=== PATIENT | female | born 1995 | race Caucasian/White ===

== ENCOUNTER 2019-07-20 09:51 | Emergency (ER) | payer OTHER, MEDICAID, SELFPAY ==
[2019-07-20 09:59] VITALS: BP 153/97; PULSE 90; RESP 13; TEMP 36.6; O2SAT 99
--- NOTE | 2019-07-20 10:17 | ED.GENADULT ---
HPI - General Adult General Chief complaint: Eye Problems Stated complaint: right eye Time Seen by Provider: 07/20/19 10:02 Source: patient Mode of arrival: Ambulatory Limitations: no limitations History of Present Illness HPI narrative: Patient is a 24-year-old female. Last day she noticed some redness and swelling to the middle portion of her right eye. She stated that things worsened over the couple days. Yesterday went to the walk-in clinic. Was started on doxycycline. Has taken a dose last evening and a dose this morning. She was also given erythromycin ointment. No prior history of PRK or LASIK. Does not were glasses or contacts. No nasal congestion. No sore throat. No trauma. She thinks that the erythromycin ointment as potentially making her symptoms worse. Does not have a primary provider Related Data Previous Rx's Medication Instructions Recorded doxycycline hyclate 100 mg capsule 100 mg PO BID 7 Days #14 cap 07/19/19 erythromycin 5 mg/gram (0.5 %) eye 0.5 inch EYE-LEFT Q4H 7 Days #3.5 07/19/19 ointment gram Allergies Allergy/AdvReac Type Severity Reaction Status Date / Time No Known Drug Allergies Allergy Verified 07/19/19 11:14 Review of Systems Constitutional Constitutional: Denies fever(s) Eyes Comments: Redness around the right eye ENT Ears, Nose, Mouth, and Throat: Denies neck pain, Denies sinus pressure and Denies sore throat Cardiovascular Cardiovascular: Denies chest pain and Denies dyspnea Respiratory Respiratory: Denies dyspnea Gastrointestinal Gastrointestinal: Denies abdominal pain Musculoskeletal Musculoskeletal: Denies neck pain Integumentary/Breasts Comments: Redness around the right eye Hematologic/Lymphatic Hematologic/Lymphatic: Denies easy bleeding and Denies easy bruising Patient History Medical History No known health problems (06/08/12) Social History Smoking Status: Never smoker Smoking Status: Never smoker Substance Use Type: does not use Exam Initial Vital Signs Initial Vital Signs: Vital Signs Temperature 97.8 F 07/20/19 09:59 Pulse Rate 90 07/20/19 09:59 Respiratory Rate 13 07/20/19 09:59 Blood Pressure 153/97 H 07/20/19 09:59 Pulse Oximetry 99 07/20/19 09:59 Const General: cooperative, comfortable and well developed Limitations: mental status not altered HENMT Head: normal to inspection and normocephalic Ears: external ears normal Nose: external nose normal Eyes Pupils: PERRL EOM: EOM intact bilaterally Other: Patient with a 1 cm round redness to the nasal aspect of the upper lid of the right eye. Does have a small white area overlying this. Has swelling to the remainder of the right upper and lower eyelid. Upper being worse in the lower. With some erythema. Left eye with some erythema. Neuro General: alert, awake and oriented x3 Cognition: normal cognition Speech: speech normal Extrem General: normal to inspection and capillary refill normal Psych Appearance: grossly normal and well kempt Procedures Abscess I/D I&D #1: Site: face Side (if applicable): right Technique: incised with #11 blade Irrigation: No Packing used?: none Course Vital Signs Vital signs: Vital Signs - 8 hr 07/20/19 09:59 Temperature 97.8 F Pulse Rate [Apical] 90 Respiratory Rate 13 Blood Pressure [Left Arm] 153/97 H Pulse Oximetry 99 Medical Decision Making MDM Narrative Medical decision making narrative: Patient extraocular muscles intact. Low suspicion for orbital cellulitis. Does have a 1 cm area on the nasal aspect of the right upper eyelid that is concerning for an abscess. I did unroof this with an 11 blade. Had a very small amount of blood in purulent material returned. Patient states that afterwards she did feel less pressure in the area. The eyeball itself appears unremarkable. Redness around the remainder the eye. She is currently on doxycycline but has only taken 2 doses of this with the 2nd dose being just a few hours ago. I informed her that she should continue with this antibiotic. She is also on erythromycin ointment. She does feel that this is potentially making her symptoms worse. Informed her that she could stop doing the erythromycin ointment. Informed her that if her symptoms do worsen over the next 12-24 to 36 hours she should return to the emergency department. If after that her symptoms are not improving she should return as well. She expressed understanding and agreement. Discharge Plan Departure Patient Disposition: Home Clinical Impression: Preseptal cellulitis of right eye Instructions: DI for Cellulitis -- Adult Activity Restrictions/Additional Instructions: Recommend that you continue to take the antibiotics like we discussed. I also recommend that you contact the health technology resource teacher here at the hospital at [phone]. They can help you with establishing a primary provider. Return to the emergency department for any new or worsening symptoms like we discussed. Prescriptions: No Action doxycycline hyclate 100 mg capsule 100 mg PO BID 7 Days Qty: 14 RF: 0 erythromycin 5 mg/gram (0.5 %) ointment 0.5 inch EYE-LEFT Q4H 7 Days Qty: 3.5 RF: 0
== END 2019-07-20 10:38 | disposition home or self-care (01) ==
PROVIDERS: Emergency Provider Emergency Medicine
DX: L03.213 Periorbital cellulitis (principal); H00.031 Abscess of right upper eyelid
CPT/HCPCS: 10060; 99281; 99282

== ENCOUNTER → 2021-11-13 16:01 | Outpatient (CLI) | payer OTHER, SELFPAY ==
[2021-11-13 17:57] LABS: Appearance Urine UA CLEAR; Bilirubin Urine UA NEGATIVE (NEGATIVE); Color Urine UA YELLOW; Glucose Urine UA NEGATIVE (Negative); Ketones Urine UA NEGATIVE (NEGATIVE); Leukocyte Esterase Urine UA NEGATIVE (NEGATIVE); Nitrite Urine UA NEGATIVE (Negative); Occult Blood Urine UA TRACE-LYSED (Negative); Protein Urine UA NEGATIVE (Negative); Urobilinogen Urine UA 0.2 E.U./dL (0.2)
[2021-11-13 18:02] LABS: Add Manual Diff / Slide Review NO; Basophils Absolute Auto 0 /uL (0-100); Basophils Percent Auto 0.1 % (0-2); Eosinophils Absolute Auto 0 /uL (0-450); Eosinophils Percent Auto 0.3 % (2-4); Hematocrit 42.4 % (36-46); Hemoglobin 14.7 g/dL (12.0-16.0); Lymphocytes Absolute Auto 2000 /uL (1100-4500); Lymphocytes Percent Auto 17.4 % (25-40); Mean Corpuscular HGB Conc 34.6 % (30-36); Mean Corpuscular Hemoglobin 28.6 PG (26-34); Mean Corpuscular Volume 82.8 fL (80-100); Monocytes Absolute Auto 700 /uL (0-900); Monocytes Percent Auto 6.3 % (3-14); Neutrophils Absolute Auto 8700 /uL (1500-7000); Neutrophils Percent Auto 75.9 % (50-75); Platelet Count 276 X10^3/uL (150-400); Red Blood Cell Count 5.12 X10^6/uL (4.0-5.2); Red Cell Distribution Width 13.1 % (11.6-14.8); White Blood Cell Count 11.4 X10^3/uL (4.5-11.0)
[2021-11-13 19:18] LABS: HIV 1 & 2 Ab/Ag 4th Gen Combo NEGATIVE (NEGATIVE); Hep C Virus Ab w/Reflex Quant NEGATIVE s/c (NEGATIVE); Hepatitis B Surface Antigen NEGATIVE s/c (NEGATIVE); Rubella Antibody IgG 18.2 IU/mL (>15)
[2021-11-14 08:51] LABS: RPR Screen Non Reactive (Non Reactive); Varicella IgG Antibody 821 index (Immune >165)
== END ==
LOC: LAB 16:04
PROVIDERS: PCP Registered Nurse Diabetes Educator; Referring Provider Specialist; Visit Provider Specialist
DX: Z34.81 Encounter for supervision of other normal pregnancy, first trimester (principal)
CPT/HCPCS: 36415; 80055; 81003; 86787; 86803; 86850; 86900; 86901; 87086; 87389

== ENCOUNTER → 2021-12-06 11:20 | Outpatient (CLI) | payer OTHER, SELFPAY | PROVIDERS: Referring Provider Family Medicine; Visit Provider Family Medicine | DX: Z34.81 Encounter for supervision of other normal pregnancy, first trimester (principal) | CPT/HCPCS: 36415 ==

== ENCOUNTER → 2022-01-02 11:18 | Outpatient (CLI) | payer OTHER, SELFPAY ==
[2022-01-04 20:38] LABS: AFP Value 29.3 ng/mL (.); Gest Age on Col Date 15.1 weeks (.); Insulin Dep Diabetes No (.); OSBR Risk 1IN 5926 (.); Results Report (.); Test Results *Screen Negative* (.)
== END ==
PROVIDERS: PCP Obstetrics & Gynecology; Referring Provider Obstetrics & Gynecology; Visit Provider Obstetrics & Gynecology
DX: Z34.82 Encounter for supervision of other normal pregnancy, second trimester (principal); Z3A.16 16 weeks gestation of pregnancy
CPT/HCPCS: 36415; 82105

== ENCOUNTER → 2022-01-29 15:15 | Outpatient (CLI) | payer OTHER, SELFPAY ==
--- NOTE | 2022-01-29 15:17 | DI.US.S_ITS ---
PROCEDURE: US OB >= 14 WEEKS FETUS INDICATIONS: ANATOMY OUTSIDE/PRIOR DATING DATA: Last menstrual period (LMP): 09/21/2021. LMP-based estimated date of delivery (VEL): 06/28/2022. First dating scan (date and location): 11/19/2021. Estimated date of delivery (VEL) from first dating scan: 06/15/2022. The calculations are made using the study generated VEL of 06/15/2022. TECHNIQUE: Real-time scanning was performed of the fetus, with image documentation and biometric measurements. Endovaginal scanning: Not indicated COMPARISON: [facility] Ultrasound, US, US OB < 14 WEEKS, 11/19/2021, 12:41. FINDINGS: General: A single living intrauterine gestation is present. Presentation: Vertex Placenta: Placental position is posterior, without previa. Amniotic fluid index: 14.1 cm, normal range is 5-24 cm. Single deepest vertical pocket is 4.7 cm. heart rate: 141 beats per minute. Maternal cervical canal: 4.1 cm long. Normal lower limit is 2.5 cm. biometrics: Biparietal diameter: 4.8 cm, 20 weeks, 4 days. Head circumference: 18.1 cm, 20 weeks, 3 days. Abdominal circumference: 15.4 cm, 20 weeks, 4 days. Femur length: 3.2 cm, 20 weeks, 0 day. Clinically estimated gestational age: 20 weeks, 3 days. Composite gestational age from present scan: 20 weeks, 3 days. Estimated weight and percentile: 348 g, 41%. Anatomic survey: Neuro: Ventricles are non-dilated at less than 10 mm. Cisterna magna is normal at 3-11 mm. Cerebellum is normal in size and morphology. Nuchal skin fold: Normal at less than 6 mm between 14-21 weeks gestational age. Face: Nose and lips, facial profile are normal. Spine: No evidence for spina bifida. Heart: 4-chambered heart is present, with normal ventricular outflow tracts. Diaphragm: Diaphragm is intact. Stomach: Left-sided stomach is present. Kidneys: No hydronephrosis. Normal is less than 5 mm in 2nd trimester, less than 7 mm in 3rd trimester. Cord: 3-vessel cord has orthotopic insertion. Bladder: Normal in size. Extremities: All 4 extremities identified. IMPRESSION: 1. Single live intrauterine gestation with fetus in vertex presentation. heart rate is 141 beats per minute. Normal growth. Normal amount of amniotic fluid. Estimated weight is at 41%. 2. Normal anatomic survey. We strive to produce accurate, complete, and clear reports of imaging services. To assist us in improving patient care, this report was composed using standard report templates and voice recognition software. Therefore, it may contain abnormal punctuation, insertions and/or omissions. Occasional wrong-word or sound-alike substitutions may occur. Though we review the report and make efforts to correct it, we do recommend that the report be read carefully in proper context to recognize any text inaccuracies. Dictated by: Master Kennedy M.D. on 01/29/2022 at 17:24 Approved by: Master Kenendy M.D. on 01/29/2022 at 17:26
== END ==
PROVIDERS: PCP Obstetrics & Gynecology; Referring Provider Obstetrics & Gynecology; Visit Provider Obstetrics & Gynecology
DX: Z34.82 Encounter for supervision of other normal pregnancy, second trimester (principal); Z3A.20 20 weeks gestation of pregnancy
CPT/HCPCS: 76811

== ENCOUNTER → 2022-03-07 13:37 | Outpatient (CLI) | payer OTHER, MEDICAID, SELFPAY ==
[2022-03-09 06:56] LABS: Candida species Positive (Negative); Gardnerella vaginalis Negative (Negative); Trichomoas vaginalis Negative (Negative)
== END ==
PROVIDERS: Visit Provider Physician Assistant Medical
DX: Z34.81 Encounter for supervision of other normal pregnancy, first trimester (principal); N89.8 Other specified noninflammatory disorders of vagina; N94.9 Unspecified condition associated with female genital organs and menstrual cycle; Z3A.25 25 weeks gestation of pregnancy
CPT/HCPCS: 87480; 87510; 87660

== ENCOUNTER → 2022-03-22 13:17 | Outpatient (CLI) | payer OTHER, MEDICAID, SELFPAY ==
[2022-03-22 14:40] LABS: Hematocrit 39.7 % (36-46); Hemoglobin 13.5 g/dL (12.0-16.0)
[2022-03-22 14:52] LABS: GTT (PREG) 1 Hour PP 50gm Dose 143 mg/dL (76-139)
== END ==
PROVIDERS: Referring Provider Obstetrics & Gynecology; Visit Provider Obstetrics & Gynecology
DX: Z34.82 Encounter for supervision of other normal pregnancy, second trimester (principal); Z3A.26 26 weeks gestation of pregnancy
CPT/HCPCS: 36415; 82950; 85014; 85018

== ENCOUNTER → 2022-04-05 08:00 | Outpatient (CLI) | payer OTHER, MEDICAID, SELFPAY ==
[2022-04-05 09:03] LABS: Glucose Fasting Gestational 90 mg/dL (76-95)
[2022-04-05 10:13] LABS: Glucose 1 Hour Gest 158 mg/dL (76-180)
[2022-04-05 11:12] LABS: Glucose 2 Hour Gest 131 mg/dL (76-155)
[2022-04-05 11:59] LABS: Glucose Tol Interp,Gestational INTERPRETATION
[2022-04-05 12:07] LABS: Glucose 3 Hour Gest 122 mg/dL (76-140)
== END ==
PROVIDERS: Referring Provider Obstetrics & Gynecology; Visit Provider Obstetrics & Gynecology
DX: O99.810 Abnormal glucose complicating pregnancy (principal)
CPT/HCPCS: 82951; 82952

== ENCOUNTER → 2022-04-24 10:25 | Outpatient (CLI) | payer OTHER, MEDICAID, SELFPAY ==
[2022-04-25 16:01] LABS: Candida species Negative (Negative); Gardnerella vaginalis Negative (Negative); Trichomoas vaginalis Negative (Negative)
== END ==
PROVIDERS: Visit Provider Obstetrics & Gynecology
DX: N89.8 Other specified noninflammatory disorders of vagina (principal)
CPT/HCPCS: 87480; 87510; 87660

== ENCOUNTER 2022-05-01 17:54 | Observation (INO) | payer OTHER, MEDICAID, SELFPAY ==
[2022-05-01 19:39] LABS: Add Manual Diff / Slide Review NO; Basophils Absolute Auto 100 /uL (0-100); Basophils Percent Auto 0.6 % (0-2); Eosinophils Absolute Auto 100 /uL (0-450); Eosinophils Percent Auto 0.5 % (2-4); Hematocrit 39.9 % (36-46); Hemoglobin 13.6 g/dL (12.0-16.0); Lymphocytes Absolute Auto 1500 /uL (1100-4500); Lymphocytes Percent Auto 14.3 % (25-40); Mean Corpuscular Hemoglobin 29.6 PG (26-34); Monocytes Absolute Auto 900 /uL (0-900); Monocytes Percent Auto 8.3 % (3-14); Neutrophils Absolute Auto 8200 /uL (1500-7000); Neutrophils Percent Auto 76.3 % (50-75); Platelet Count 209 X10^3/uL (150-400); Red Blood Cell Count 4.59 X10^6/uL (4.0-5.2); Red Cell Distribution Width 13.7 % (11.6-14.8); White Blood Cell Count 10.7 X10^3/uL (4.5-11.0)
[2022-05-01 19:40] LABS: Appearance Urine UA CLEAR; Bilirubin Urine UA NEGATIVE (NEGATIVE); Color Urine UA YELLOW; Glucose Urine UA NEGATIVE (Negative); Ketones Urine UA NEGATIVE (NEGATIVE); Leukocyte Esterase Urine UA NEGATIVE (NEGATIVE); Nitrite Urine UA NEGATIVE (Negative); Occult Blood Urine UA NEGATIVE (Negative); Protein Urine UA NEGATIVE (Negative); Specific Gravity Urine UA <=1.005 (1.000-1.035); Urobilinogen Urine UA 0.2 E.U./dL (0.2)
[2022-05-01 19:44] LABS: pH Urine UA 6.5 (4.5-8.0)
[2022-05-01 19:57] LABS: Amorphous Sediment Urine 1+; Bacteria Urine Moderate (10-30); RBC Urine None Seen (0-5/HPF); Squamous Epithelial Cell Urine 1-5 /HPF (0-5/HPF); WBC Urine 0-1/HPF (0-5/HPF)
[2022-05-01 19:58] LABS: Culture Indicated Urine Specimen Cultured
[2022-05-01 20:00] LABS: Alanine Aminotransferase 82 IU/L (<35); Albumin 3.3 g/dL (3.5-5.0); Albumin Globulin Ratio 1.1 (1.0-2.8); Alkaline Phosphatase 108 U/L (38-126); Aspartate Aminotransferase 71 IU/L (14-36); BUN Creatinine Ratio 12.2 (6-22); Bilirubin Total 0.7 mg/dL (0.2-1.3); Blood Urea Nitrogen 5 mg/dL (7-17); Calcium 8.3 mg/dL (8.4-10.2); Carbon Dioxide 19 mmol/L (22-32); Chloride 107 mmol/L (98-107); Estimated Glomerular Filt Rate > 60 mL/min (>60); Globulin 2.9 g/dL (1.7-4.1); Glucose 106 mg/dL (70-100); Sodium 136 mmol/L (137-145); Total Protein 6.2 g/dL (6.3-8.2)
[2022-05-01 20:02] LABS: HEMOLYSIS 130 (0-50)
[2022-05-01 20:03] LABS: Potassium 4.6 mmol/L (3.4-5.1)
[2022-05-01] MEDS: LACTATED RINGERS 1,000 ML 1000 ML IV (20:14)
[2022-05-01] MEDS: ONDANSETRON 4 MG/2 ML INJ IV (20:31)
[2022-05-01] MEDS: SODIUM CHLORIDE 0.9% 1,000 ML 1000 ML IV (20:41)
--- NOTE | 2022-05-01 21:13 | P.TNLD_ITS ---
Visit Information Visit Information Date of evaluation: 05/01/22 Primary OB Provider: Oumou Mccrary Comments/Additional reasons for admission: 26 yo @ 33 weeks 4days SARAI brought in for evaluation due to persistent nausea and reported abdominal tightening, described contractions. Four days ago she had onset of nausea with emesis later that night. She also had loose stools, resolved the next day. No fever. Nausea has continued, though it is becoming overall less. She has not had any fever or other signs of infection. No nasal congestion, sore throat or cough. No one else is ill. No recent eating out, but feels she started not feeling well after eating some grapes from an organic market. Nausea getting less but still having some. Trying to stay hydrated with water and Pedialyte but feels she is somewhat dehydrated, urine staying a darker c olor. She has She denies headache, scotomata or abdominal pain. She has felt diffuse abdominal tightness which felt uncomfortable, but no focal pain. Less abdominal tightness now. Mostly persisting with the nausea. Denies leakage of fluid or vaginal bleeding. She is feeling good moveme nt. [facility] Medical History (Updated 11/27/21 @ 15:33 by Avril Pathak RN) Abscess Anxiety Depression Hirsutism PTSD (post-traumatic stress disorder) Surgical History (Updated 11/27/21 @ 15:33 by Avril Pathak RN) History of tonsillectomy Family History (Updated 11/27/21 @ 15:34 by Avril Pathak RN) Grandmother Lung cancer Diabetes mellitus Social History marital status: number of children: 1 household members: spouse and children lives independently: Yes housing: condominium (duplex) pets and animals: No education level: middle school occupational status: employed (desk job) current occupational exposures/hazards: No special marlon needs: No seatbelt use: always water heater temp set < 120 deg: Yes (Will check and adjust if needed) working smoke detector in home: Yes fire extinguisher in home: No carbon monox detector in home: Yes firearms in home: Yes firearms unloaded and locked: Yes do you feel safe at home: Yes Smoking Status: Former smoker (MJ only) second hand exposure: No alcohol intake: former substance use type: marijuana (Stopped when she learned she was ) during the past year weight has: remained stable well-balanced diet: about half the time daily servings fruits/ve-4 caffeine: Yes (green tea) Type(s) of exercise: walking frequency: daily Exam Vital Signs (past 8 hours): . Temp 36.6C BP 125/62, Pulse 100 then 94 Narrative Exam Narrative: General: Mildly fatigued, unwell appearing. No acute distress. Abdomen gravid, nontender throughout. Uterus nontender Objective Labs Result Diagrams: 05/01/22 19:30 05/01/22 19:30 Labs: Laboratory Results - last 24 hr 05/01/22 05/01/22 05/01/22 18:30 19:30 19:30 WBC 10.7 RBC 4.59 Hgb 13.6 Hct 39.9 MCV 87.0 MCH 29.6 MCHC 34.0 RDW 13.7 Plt Count 209 Neut % (Auto) 76.3 H Lymph % (Auto) 14.3 L [place] % (Auto) 8.3 Eos % (Auto) 0.5 L Baso % (Auto) 0.6 Neut # (Auto) 8200 H Lymph # (Auto) 1500 [place] # (Auto) 900 Eos # (Auto) 100 Baso # (Auto) 100 Sodium 136 L Potassium 4.6 Chloride 107 Carbon Dioxide 19 L BUN 5 L Creatinine 0.41 L Estimated GFR > 60 BUN/Creatinine Ratio 12.2 Glucose 106 H Calcium 8.3 L Total Bilirubin 0.7 AST 71 H ALT 82 H Alkaline Phosphatase 108 Total Protein 6.2 L Albumin 3.3 L Globulin 2.9 Albumin/Globulin Ratio 1.1 Urine Color Yellow Urine Appearance Clear Urine pH 6.5 Ur Specific [place] <=1.005 Urine Protein Negative Urine Glucose (UA) Negative Urine Ketones Negative Urine Occult Blood Negative Urine Nitrate Negative Urine Bilirubin Negative Urine Urobilinogen 0.2 Ur Leukocyte Esterase Negative Urine RBC None seen Urine WBC 0-1/hpf Ur Squamous Epith Cells 1-5 /hpf Amorphous Sediment 1+ Urine Bacteria Moderate (10-30) H Ur Culture Indicated? Specimen cultured Diagnosis, Plan/Disposition Plan/Disposition Plan: 26 yo EGA 33wk+4d with persistent but lessening nausea, suspect viral syndrome. Lab showed mild elevation in AST/ALT. Platelets, creatinine normal. UA no protein and her BP's are normal, feel unlikely preeclampsia. No abdominal tenderness to suspect cholecystitis or appendicitis At this time. UA negative negative except micro did show bacteria. Will reflex culture. She was IV hydrated with 2 L and given Zofran. She did feel overall better after the IV hydration and Zofran and was ready to try going home. Will Rx Zofran 4 at home for next 3 days as needed. Advised she should call if nausea significantly worsened again or if develops other symptoms including abdominal pain.. With mild elevated AST/ALT, urine protein / creatinine ratio ordered, but she had just voided again. BP is normal and I feel this is most likely a viral syndrome, which I discussed can also mildly elevated LFTs. Will thus discharge home at this time and check protein/creatinine ratio at follow-up office visit. OB Disposition: home
[2022-05-01 22:25] LABS: Creatinine Urine Random 14.2 mg/dL; Protein (Total) Urine Random 18 mg/dL (0-12); Protein Creatinine Ratio Urine 1.26 GRAM/24H
== END 2022-05-01 22:08 | disposition home or self-care (01) ==
LOC: LABOR 17:58
PROVIDERS: Admitting Provider Obstetrics & Gynecology; Referring Provider Obstetrics & Gynecology; Visit Provider Obstetrics & Gynecology
DX: O21.9 Vomiting of pregnancy, unspecified (principal); O47.03 False labor before 37 completed weeks of gestation, third trimester; Z3A.33 33 weeks gestation of pregnancy
CPT/HCPCS: 59025; 59050; 80053; 81001; 82570; 84156; 85025; 87086; 96360; G0378; G0379; J2405

== ENCOUNTER → 2022-05-09 09:35 | Outpatient (CLI) | payer OTHER, MEDICAID, SELFPAY ==
[2022-05-09 15:22] LABS: Creatinine Urine Random 17.2 mg/dL; Protein (Total) Urine Random 18 mg/dL (0-12); Protein Creatinine Ratio Urine 1.04 GRAM/24H
== END ==
PROVIDERS: Visit Provider Obstetrics & Gynecology
DX: Z34.03 Encounter for supervision of normal first pregnancy, third trimester (principal); R79.89 Other specified abnormal findings of blood chemistry
CPT/HCPCS: 82570; 84156

== ENCOUNTER → 2022-05-09 09:45 | Outpatient (CLI) | payer OTHER, MEDICAID, SELFPAY ==
[2022-05-09 10:17] LABS: Hematocrit 39.8 % (36-46); Hemoglobin 13.9 g/dL (12.0-16.0); Mean Corpuscular HGB Conc 34.9 % (30-36); Mean Corpuscular Hemoglobin 29.9 PG (26-34); Mean Corpuscular Volume 85.5 fL (80-100); Platelet Count 214 X10^3/uL (150-400); Red Blood Cell Count 4.65 X10^6/uL (4.0-5.2); Red Cell Distribution Width 13.3 % (11.6-14.8); White Blood Cell Count 10.7 X10^3/uL (4.5-11.0)
[2022-05-09 10:58] LABS: Alanine Aminotransferase 46 IU/L (<35); Albumin 3.3 g/dL (3.5-5.0); Alkaline Phosphatase 134 U/L (38-126); Aspartate Aminotransferase 31 IU/L (14-36); BUN Creatinine Ratio 14.9 (6-22); Bilirubin Total 0.2 mg/dL (0.2-1.3); Blood Urea Nitrogen 7 mg/dL (7-17); Calcium 8.8 mg/dL (8.4-10.2); Carbon Dioxide 22 mmol/L (22-32); Chloride 105 mmol/L (98-107); Estimated Glomerular Filt Rate > 60 mL/min (>60); Globulin 3.2 g/dL (1.7-4.1); Glucose 112 mg/dL (70-100); HEMOLYSIS < 15 (0-50); Potassium 3.8 mmol/L (3.4-5.1); Sodium 135 mmol/L (137-145); Total Protein 6.5 g/dL (6.3-8.2)
== END ==
PROVIDERS: Referring Provider Obstetrics & Gynecology; Visit Provider Obstetrics & Gynecology
DX: O99.891 Other specified diseases and conditions complicating pregnancy (principal); R79.89 Other specified abnormal findings of blood chemistry
CPT/HCPCS: 36415; 80053; 82570; 84156; 85027

== ENCOUNTER → 2022-05-10 13:39 | Outpatient (CLI) | payer OTHER, MEDICAID, SELFPAY | PROVIDERS: Referring Provider Obstetrics & Gynecology; Visit Provider Obstetrics & Gynecology | DX: O12.10 Gestational proteinuria, unspecified trimester (principal); Z3A.00 Weeks of gestation of pregnancy not specified | CPT/HCPCS: 87086 ==

== ENCOUNTER → 2022-05-16 12:36 | Outpatient (CLI) | payer OTHER, MEDICAID, SELFPAY ==
[2022-05-17 15:34] LABS: Strep Grp B PCR POS for Grp B Strep
== END ==
PROVIDERS: Visit Provider Obstetrics & Gynecology
DX: Z36.85 Encounter for antenatal screening for Streptococcus B (principal); Z3A.35 35 weeks gestation of pregnancy
CPT/HCPCS: 87186; 87653

== ENCOUNTER → 2022-05-20 06:47 | Outpatient (CLI) | payer OTHER, MEDICAID, SELFPAY ==
--- NOTE | 2022-05-20 06:51 | DI.US.S_ITS ---
PROCEDURE: US OB LIMITED INDICATIONS: FUNDAL HEIGHT LARGE FOR GESTATIONAL AGE. GROWTH. OUTSIDE/PRIOR DATING DATA: Last menstrual period (LMP): 09/21/2021. LMP-based estimated date of delivery (VEL): 06/28/2022. First dating scan (date and location): 11/19/2021. Estimated date of delivery (VEL) from first dating scan: 06/15/2022. The calculations are made using the ultrasound VEL of 06/15/2022. TECHNIQUE: Real-time scanning was performed of the fetus, with image documentation and biometric measurements. Endovaginal scanning: Not performed COMPARISON: [facility], , OB >= 14 WEEKS FETUS, 01/29/2022, 15:41. FINDINGS: General: A single living intrauterine gestation is present. Presentation: Vertex. Placenta: Placental position is posterior. Placental edge not visualized on this exam, previa not present previously. Amniotic fluid index: 9.9 cm, normal range is 5-24 cm. Single deepest vertical pocket is 3.4 cm. heart rate: 149 beats per minute. Maternal cervical canal: Not well visualized. biometrics: Biparietal diameter: 9.3 cm, 38 weeks 0 days Head circumference: 32.9 cm, 37 weeks 2 days Abdominal circumference: 34.6 cm, 38 weeks 4 days Femur length: 7.1 cm, 36 weeks 3 days estimated gestational age: 36 weeks 2 days Composite gestational age from present scan: 37 weeks 4 days Estimated weight and percentile: 3319 g, 89th percentile Other: Not applicable. IMPRESSION: 1. Single living intrauterine in vertex presentation. 2. Estimated weight at the 89th percentile. We strive to produce accurate, complete, and clear reports of imaging services. To assist us in improving patient care, this report was composed using standard report templates and voice recognition software. Therefore, it may contain abnormal punctuation, insertions and/or omissions. Occasional wrong-word or sound-alike substitutions may occur. Though we review the report and make efforts to correct it, we do recommend that the report be read carefully in proper context to recognize any text inaccuracies. Dictated by: Tommy Beltre M.D. on 05/20/2022 at 8:17 Approved by: Tommy Beltre M.D. on 05/20/2022 at 8:25
== END ==
PROVIDERS: Referring Provider Obstetrics & Gynecology; Visit Provider Obstetrics & Gynecology
DX: Z36.88 Encounter for antenatal screening for fetal macrosomia (principal); Z3A.37 37 weeks gestation of pregnancy
CPT/HCPCS: 76815

== ENCOUNTER → 2022-05-23 09:54 | Outpatient (CLI) | payer OTHER, MEDICAID, SELFPAY ==
[2022-05-23 10:29] LABS: Hematocrit 43.3 % (36-46); Hemoglobin 14.4 g/dL (12.0-16.0); Mean Corpuscular HGB Conc 33.2 % (30-36); Mean Corpuscular Hemoglobin 28.8 PG (26-34); Mean Corpuscular Volume 86.8 fL (80-100); Platelet Count 175 X10^3/uL (150-400); Red Cell Distribution Width 13.5 % (11.6-14.8); White Blood Cell Count 10.3 X10^3/uL (4.5-11.0)
[2022-05-23 10:51] LABS: Alanine Aminotransferase 21 IU/L (<35); Albumin 3.3 g/dL (3.5-5.0); Albumin Globulin Ratio 1.1 (1.0-2.8); Alkaline Phosphatase 140 U/L (38-126); Aspartate Aminotransferase 20 IU/L (14-36); BUN Creatinine Ratio 15.7 (6-22); Bilirubin Total 0.3 mg/dL (0.2-1.3); Blood Urea Nitrogen 8 mg/dL (7-17); Carbon Dioxide 21 mmol/L (22-32); Chloride 104 mmol/L (98-107); Estimated Glomerular Filt Rate > 60 mL/min (>60); Glucose 104 mg/dL (70-100); HEMOLYSIS < 15 (0-50); Potassium 4.1 mmol/L (3.4-5.1); Sodium 134 mmol/L (137-145); Total Protein 6.3 g/dL (6.3-8.2)
== END ==
PROVIDERS: Referring Provider Obstetrics & Gynecology; Visit Provider Obstetrics & Gynecology
DX: R79.89 Other specified abnormal findings of blood chemistry (principal); Z34.03 Encounter for supervision of normal first pregnancy, third trimester
CPT/HCPCS: 36415; 80053; 85027

== ENCOUNTER 2022-05-26 19:11 | Outpatient (CLI) | payer OTHER, MEDICAID, SELFPAY ==
--- NOTE | 2022-05-26 20:09 | PM.OBTRLD ---
Visit Information Visit Information Date of evaluation: 05/26/22 Primary OB Provider: Oumou Mccrary On-call OB Provider: Bronson Ledesma Reason for Evaluation: Yes non-stress test Comments/Additional reasons for admission: Kinga presents for evaluation due to decreased FM this evening. She's not having any contractions, bleeding, or LOF. Chart reviewed. PNC uneventful to date with noted to be LGA on her most recent growth US (05/20/2022) w/ ELLIS 9.9 cm. Elevated 1 hr. GDM screen but 3 hr. GTT is normal. GBS +. Vital Signs Vital Signs: BP: 129/78 P: 104 T: 37.0C PFSH Medical History (Updated 05/26/22 @ 20:26 by Bronson Ledesma MD) Abscess Anxiety Depression Hirsutism PTSD (post-traumatic stress disorder) Surgical History (Updated 11/27/21 @ 15:33 by Avril Pathak RN) History of tonsillectomy Family History (Updated 11/27/21 @ 15:34 by Avril Pathak RN) Grandmother Lung cancer Diabetes mellitus Social History marital status: number of children: 1 household members: spouse and children lives independently: Yes housing: condominium (duplex) pets and animals: No education level: middle school occupational status: employed (desk job) current occupational exposures/hazards: No special marlon needs: No seatbelt use: always water heater temp set < 120 deg: Yes (Will check and adjust if needed) working smoke detector in home: Yes fire extinguisher in home: No carbon monox detector in home: Yes firearms in home: Yes firearms unloaded and locked: Yes do you feel safe at home: Yes Smoking Status: Former smoker (MJ only) second hand exposure: No alcohol intake: former substance use type: marijuana (Stopped when she learned she was ) during the past year weight has: remained stable well-balanced diet: about half the time daily servings fruits/ve-4 caffeine: Yes (green tea) Type(s) of exercise: walking frequency: daily Evaluation Evaluation Baseline heart rate: 140 Variability: Moderate (11-25) monitor accelerations: Present Monitor Decelerations: Variable (? two mild variables vs. overshoot of baseline post acceleration x 2) Category of Tracing: Reactive Status: Category l Diagnosis, Plan/Disposition Final Diagnosis (1) : Status: Acute Problem details: 37+1 wks EGA (2) Decreased movement affecting management of in third trimester: Status: Acute Problem details: Resolved; active infant noted during period of observation on the Center. Patient reassured. Plan/Disposition Plan: Continue close observation of FM and patient encouraged to call or return to the with any concerns. F/U OB visit scheduled 05/30/[address] Mccrary. OB Disposition: home
== END 2022-05-26 20:20 | disposition home or self-care (01) ==
LOC: LABOR 19:17 → OB 05-29 09:08
PROVIDERS: Referring Provider Obstetrics & Gynecology; Visit Provider Obstetrics & Gynecology
DX: O36.8130 Decreased fetal movements, third trimester, not applicable or unspecified (principal); Z3A.37 37 weeks gestation of pregnancy
CPT/HCPCS: 59025; G0378; G0379

== ENCOUNTER 2022-05-30 22:26 | Inpatient (IN) | payer OTHER, MEDICAID, SELFPAY ==
[2022-05-30 23:10] VITALS: BP 136/66
[2022-05-31] MEDS: LACTATED RINGERS 1,000 ML 100 ML IV ×2 (00:14→03:44)
[2022-05-31] MEDS: PENICILLIN G POTASSIUM 5,000,000 UNIT in DEXTROSE 5% IN WATER 250 ML 250 UNIT IV (00:19)
[2022-05-31 00:27] LABS: Add Manual Diff / Slide Review NO; Basophils Absolute Auto 0 /uL (0-100); Basophils Percent Auto 0.1 % (0-2); Eosinophils Absolute Auto 0 /uL (0-450); Eosinophils Percent Auto 0.4 % (2-4); Hematocrit 42.5 % (36-46); Hemoglobin 14.6 g/dL (12.0-16.0); Lymphocytes Absolute Auto 1800 /uL (1100-4500); Lymphocytes Percent Auto 16.7 % (25-40); Mean Corpuscular HGB Conc 34.4 % (30-36); Mean Corpuscular Hemoglobin 29.5 PG (26-34); Mean Corpuscular Volume 85.8 fL (80-100); Monocytes Absolute Auto 900 /uL (0-900); Monocytes Percent Auto 8.8 % (3-14); Neutrophils Absolute Auto 7900 /uL (1500-7000); Platelet Count 178 X10^3/uL (150-400); Red Blood Cell Count 4.96 X10^6/uL (4.0-5.2); Red Cell Distribution Width 13.6 % (11.6-14.8); White Blood Cell Count 10.7 X10^3/uL (4.5-11.0)
[2022-05-31 00:47] LABS: COVID19 -Nasal RAPID Negative (Negative)
[2022-05-31] MEDS: FENT 2MCG/ML BUPIV 0.125% EPI 200 MCG/100 ML PLAST..BAG 7 MCG EPIDURAL (02:00)
[2022-05-31] MEDS: PENICILLIN G POTASSIUM 3,000,000 UNIT/50 ML FROZ.PIGGY 100 UNIT IV (03:47)
--- NOTE | 2022-05-31 05:05 | P.HPOB_ITS ---
OB HPI Date/Time Date of admission: 05/30/22 Date Patient Seen: 05/31/22 Time Patient Seen: 05:05 History of Present Condition Chief complaint: observation of labor VEL Calculator Estimated Delivery Date Method Current WG Current Estimate 06/15/22 Ultrasound #1 37w 6d Other Estimates 06/28/22 LMP (Uncertain) 36w 0d Estimated Gestational Age (weeks): 37+6 : 2 Para: 1 care: good care, initiated at week # (12), number of visits (10) and pounds weight gain (51) Dating criteria OB: LMP confirmed by 1st trimester US Ultrasounds: normal 1st trimester US and normal mid trimester US Obstetrical complications: none Medical complications OB: none Preadmission Labs Last OB Lab Results: Blood Type B Positive 05/31/22 00:10 Antibody Screen Negative 05/31/22 00:10 Hematocrit 42.5 % (36-46) 05/31/22 00:10 Hemoglobin 14.6 g/dL (12.0-16.0) 05/31/22 00:10 Hepatitis B Surface Antigen Negative s/c (NEGATIVE) 11/13/21 16 :09 Hepatitis C Antibody Negative s/c (NEGATIVE) 11/13/21 16:09 Rubella Antibody 18.2 IU/mL (>15) 11/13/21 16:09 Varicella-Zoster IgG Antibody 821 index (Immune >165) 11/13/21 16:09 Glucose 1 Hour 143 mg/dL (76-139) H 03/22/22 13:23 Group B Streptococcus (PCR) Pos for grp b strep H 05/16/22 12:3 6 Glucose Tolerance Testing: Fasting (90), 1 hr (158), 2 hr (131) and 3 hr (122) -: Chlamydia screen: negative, Gonorrhea screen: negative and Urine: negative -: PAP smear: Normal Genetic Screens: Cell-free DNA: Normal (normal male) and Alpha-fetoprotein: Normal External Labs -: Urine: negative Prior (ies) Past Pregnancies Del. Date GA/Weeks Labor Lgth Wt Sex Route Outcome Anesthesia Place Delv Breastfeed Preg Comp Name 12/12/17 41 9 7 lb 8 oz Female vaginal live - full term [place], [place] 5 months none [place] Evaluation Evaluation Baseline heart rate: 140 Variability: Moderate (11-25) monitor accelerations: Present Monitor Decelerations: Absent Contraction Frequency (minutes): 3 Uterine Contraction Intensity: Strong/Firm Status: Category l Dilation (cm): 10 Effacement (%): 100 station: +1 [facility] Medical History (Updated 05/27/22 @ 11:45 by Bronson Ledesma MD) Abscess Anxiety Depression Hirsutism PTSD (post-traumatic stress disorder) Surgical History (Updated 11/27/21 @ 15:33 by Avril Pathak, RN) History of tonsillectomy Family History (Updated 11/27/21 @ 15:34 by Avril Pathak RN) Grandmother Lung cancer Diabetes mellitus Social History marital status: number of children: 1 household members: spouse and children lives independently: Yes housing: condominium (duplex) pets and animals: No education level: middle school occupational status: employed (desk job) current occupational exposures/hazards: No special marlon needs: No seatbelt use: always water heater temp set < 120 deg: Yes (Will check and adjust if needed) working smoke detector in home: Yes fire extinguisher in home: No carbon monox detector in home: Yes firearms in home: Yes firearms unloaded and locked: Yes do you feel safe at home: Yes Smoking Status: Former smoker second hand exposure: No alcohol intake: former substance use type: marijuana (Stopped when she learned she was ) during the past year weight has: remained stable well-balanced diet: about half the time daily servings fruits/ve-4 caffeine: Yes (green tea) Type(s) of exercise: walking frequency: daily Meds Home Medications and Allergies Home Medications Medication Instructions Recorded Confirmed Type prenat.vits,jewel,wcs-dajs-gdqlb 1 tab PO DAILY 11/27/21 05/30/22 History fluconazole 150 mg tablet 150 mg PO Q3D 2 doses #2 tabs 03/11/22 05/30/22 Rx (Diflucan) nystatin-triamcinolone 100,000 1 applic topical BID 10 days #30 04/24/22 05/30/22 Rx unit/gram-0.1 % topical ointment grams Allergies Allergy/AdvReac Type Severity Reaction Status Date / Time No Known Drug Allergies Allergy Verified 05/30/22 08:53 OB Exam Narrative Exam Narrative: Generally: Patient comfortable with contractions with an epidural Fundal height: 40 cm Estimated weight: 8 lb Extremities: 1+ edema Objective Labs Result Diagrams: 05/31/22 00:10 Labs: Laboratory Results - last 24 hr 05/31/22 05/31/22 05/31/22 00:10 00:10 00:18 WBC 10.7 RBC 4.96 Hgb 14.6 Hct 42.5 MCV 85.8 MCH 29.5 MCHC 34.4 RDW 13.6 Plt Count 178 Neut % (Auto) 74.0 Lymph % (Auto) 16.7 L [place] % (Auto) 8.8 Eos % (Auto) 0.4 L Baso % (Auto) 0.1 Neut # (Auto) 7900 H Lymph # (Auto) 1800 [place] # (Auto) 900 Eos # (Auto) 0 Baso # (Auto) 0 SARS-CoV-2 (PCR) Negative Blood Type B Positive Antibody Screen Negative Assessment and Plan Assessment and Plan Assessment and Plan narrative: Assessment: 26-year-old 2 para 1 at 37-,6/7 weeks gestation entering second stage of labor Spontaneous rupture of membranes 6 hours ago, received 2 doses of antibiotics for GBS Epidural in place Abnormal 1 hour glucose, 3 hour normal Estimated weight at the eighty-ninth percentile at 36 weeks Plan: Expected management to spontaneous vaginal delivery
[2022-05-31] MEDS: CALCIUM CARBONATE 500 MG TAB 1000 MG PO (05:27)
--- NOTE | 2022-05-31 06:09 | PM.OBPRVD ---
Events: Induced HTN Labor & Delivery Delivery date: 05/31/22 Cervical ripening method: none Induction method: none Delivery monitor: external FHT and external uterine Route of delivery: Episiotomy description: None L&D Laceration Description: None Quantitative Blood Loss: 225 Anesthesia Type: Epidural Complications: None Narrative: Patient complete and pushed for 52 minutes. At 5:57 a.m., a live male infant delivered spontaneously in the [place] presentation, over an intact perineum. No nuchal cord. The remainder of the body delivered without difficulty and was placed on mom's abdomen. The cord was double clamped and cut after it stopped pulsing. Cord bloods were obtained. Pitocin was given in the IV fluids. The placenta delivered intact with a three-vessel cord at 6:05 a.m.. Fundus was massaged to firm. The vagina and perineum were examined and there were no lacerations. Apgars 8 at 1 minute and 9 at 5 minutes. QBL 225 cc. Epidural analgesia. . Mom and infant stable to recovery. Baby 1: gender: Male Presentation: vertex Position: Right Occiput Anterior Placenta delivery description: Spontaneous Cord Vessel Description: 3 Vessels and Clamped/Cut (After the cord stopped pulsing) score (1 min): 8 score (5 min): 9 weight: 8 lb 7.9 oz Plan for aftercare: Routine care
[2022-05-31] MEDS: ACETAMINOPHEN 325 MG TABLET 650 MG PO ×3 (08:23→20:45)
[2022-05-31] MEDS: IBUPROFEN 600 MG TABLET PO ×3 (08:24→20:45)
[2022-05-31] MEDS: DOCUSATE 100 MG CAPSULE PO (14:25)
[2022-05-31] MEDS: PRENATAL VIT,CALC/IRON/FOLIC 1 TABLET 1 TAB PO (14:26)
[2022-06-01] MEDS: IBUPROFEN 600 MG TABLET PO ×2 (02:23→09:11)
[2022-06-01] MEDS: ACETAMINOPHEN 325 MG TABLET 650 MG PO ×2 (02:23→09:11)
[2022-06-01 06:36] LABS: Hematocrit 36.4 % (36-46); Hemoglobin 12.7 g/dL (12.0-16.0)
[2022-06-01] MEDS: DOCUSATE 100 MG CAPSULE PO (09:11)
[2022-06-01] MEDS: PRENATAL VIT,CALC/IRON/FOLIC 1 TABLET 1 TAB PO (09:11)
--- NOTE | 2022-06-01 10:11 | PM.OBDS.1 ---
Discharge Providers Provider Date of admission: 05/30/22 22:26 Discharge Date: 06/01/22 Primary care physician: Oumou Mccrary MD Consults: 06/01/22 06:13 Consult to Disability Insurance Claim Examiner Routine Comment: Discharge provider: Asya Nina MD Summary Hospital Course Date Patient Seen: 06/01/22 Time Patient Seen: 10:11 Diagnoses: 37-,6/7 weeks gestation Spontaneous rupture of membrane Epidural analgesia Spontaneous vaginal delivery Hospital Course: Patient is a 26-year-old 2 para 2 who presented at 37-,6/7 weeks gestation with spontaneous rupture of membranes. She was group B strep positive. She received 2 doses of prophylactic antibiotics. She received an epidural for pain management. She had a spontaneous vaginal delivery without complication. She had no lacerations. Her course was unremarkable. She is discharged home on day #1. Peripartum Data Infant Delivery Method: Natural Vaginal Laceration Description: None Episiotomy description: None Procedures: Epidural analgesia Spontaneous vaginal delivery complications: none [place] 1: Gender: Male Disposition of : home Status at Discharge Cognitive/behavioral status at discharge: oriented Functional status at discharge: independent ambulation Overall status at discharge: patient is progressing back to baseline Time Spent with Patient Time attestation: Total time spent providing and/or coordinating discharge services: Time spent: Less than 30 minutes Objective Labs Result Diagrams: 06/01/22 06:17 Labs: Laboratory Results - last 24 hr 06/01/22 06:17 Hgb 12.7 Hct 36.4 Exam Narrative Exam Narrative: Generally: Patient is sitting up in bed, no acute distress Fundus: Firm at U -2 Extremities: 1+ edema, negative Homans Discharge Plan Discharge Plan Patient Disposition: Home Provider Discharge Comment: Call with fever, chills, or bleeding vaginally more than a pad in an hour Discharge orders & Medications Prescriptions: Continued fluconazole [Diflucan] 150 mg tablet 150 mg PO Q3D Qty: 2 0RF Rx Instructions: may repeat second dose 72 hrs after first dose prenat.vits,jewel,[id number] Tablet 1 tab PO DAILY Discontinued nystatin-triamcinolone 100,000-0.1 unit/gram-% ointment 1 applic topical BID 10 Days Qty: 30 1RF Rx Instructions: Apply a thin amount to affected vulvar area Follow up/Referrals: Asya Nina MD [Physician] - 07/15/22 2:00 pm Diet/Activity/Treatments Diet: Regular Activity: Nothing in the vagina for 6 weeks Skin/Wound/Dressing Care Report to your healthcare provider any signs of infection, such as:: chills, fever, increased pain and unusual drainage Visit Report/Discharge Packet Instructions: DI for Labor and Delivery, Vaginal Stand Alone Forms: Discharge: Care, Patient Portal/API, Stroke Signs & Symptoms Discharge Data Primary Care Provider: Oumou Mccrary
[2022-06-01 10:26] VITALS: BP 116/73; PULSE 74; RESP 19; TEMP 37
== END 2022-06-01 11:10 | disposition home or self-care (01) | DRG 560 ==
PROVIDERS: Admitting Provider Obstetrics & Gynecology; PCP Obstetrics & Gynecology; Referring Provider Obstetrics & Gynecology; Visit Provider Obstetrics & Gynecology
DX: O13.4 Gestational [pregnancy-induced] hypertension without significant proteinuria, complicating childbirth (principal); O99.824 Streptococcus B carrier state complicating childbirth; O42.02 Full-term premature rupture of membranes, onset of labor within 24 hours of rupture; Z3A.37 37 weeks gestation of pregnancy; Z37.0 Single live birth; Z20.822 Contact with and (suspected) exposure to COVID-19
CPT/HCPCS: 36415; 59050; 59409; 84112; 85014; 85018; 85025; 86850; 86900; 86901; 87635; C9803; G0379; J2540

== ENCOUNTER → 2022-07-15 12:26 | Outpatient (CLI) | payer OTHER, MEDICAID, SELFPAY ==
[2022-07-15 14:07] LABS: TSH w/ Reflex to FT4 1.17 uIU/mL (0.47-4.68)
[2022-07-16 11:00] LABS: Candida species Negative (Negative); Gardnerella vaginalis Negative (Negative); Trichomoas vaginalis Negative (Negative)
== END ==
PROVIDERS: Obstetrics & Gynecology; Referring Provider Physician Assistant Medical; Visit Provider Physician Assistant Medical
DX: E04.9 Nontoxic goiter, unspecified (principal); N89.8 Other specified noninflammatory disorders of vagina
CPT/HCPCS: 36415; 84443; 87480; 87510; 87660

== ENCOUNTER → 2023-02-06 16:34 | Outpatient (CLI) | payer OTHER, MEDICAID, SELFPAY | PROVIDERS: PCP Registered Nurse Diabetes Educator; Visit Provider Registered Nurse Diabetes Educator | DX: N89.8 Other specified noninflammatory disorders of vagina (principal) | CPT/HCPCS: 87210 ==

== ENCOUNTER → 2024-10-18 14:58 | Outpatient (CLI) | payer OTHER, SELFPAY ==
[2024-10-18 18:26] LABS: Urine N gonorrhoeae NOT DETECTED
[2024-10-18 18:27] LABS: Urine Chlamydia NOT DETECTED
== END ==
LOC: LAB 15:03
PROVIDERS: PCP Registered Nurse Diabetes Educator; Visit Provider Student in an Organized Health Care Education/Training Program
DX: Z34.81 Encounter for supervision of other normal pregnancy, first trimester (principal)
CPT/HCPCS: 87491; 87591

== ENCOUNTER → 2024-10-18 15:45 | Outpatient (CLI) | payer OTHER, SELFPAY ==
[2024-10-18 17:02] LABS: Add Manual Diff / Slide Review NO; Basophils Absolute Auto 0 /uL (0-100); Basophils Percent Auto 0.2 % (0-2); Eosinophils Absolute Auto 0 /uL (0-450); Eosinophils Percent Auto 0.5 % (2-4); Hematocrit 42.7 % (36-46); Hemoglobin 14.6 g/dL (12.0-16.0); Lymphocytes Absolute Auto 1600 /uL (1100-4500); Lymphocytes Percent Auto 17.4 % (25-40); Mean Corpuscular HGB Conc 34.3 % (30-36); Mean Corpuscular Hemoglobin 28.3 PG (26-34); Mean Corpuscular Volume 82.7 fL (80-100); Monocytes Absolute Auto 600 /uL (0-900); Monocytes Percent Auto 6.3 % (3-14); Neutrophils Absolute Auto 6900 /uL (1500-7000); Neutrophils Percent Auto 75.6 % (50-75); Platelet Count 297 X10^3/uL (150-400); Red Blood Cell Count 5.16 X10^6/uL (4.0-5.2); Red Cell Distribution Width 13.7 % (11.6-14.8); White Blood Cell Count 9.2 X10^3/uL (4.5-11.0)
[2024-10-18 17:07] LABS: Hemoglobin A1C% w Est Avg Glu 4.7 % (4.0-6.0)
[2024-10-19 04:40] LABS: RPR Screen Non Reactive (Non Reactive)
[2024-10-20 09:36] LABS: Varicella IgG Antibody Reactive (Non Reactive)
[2024-10-20 19:46] LABS: HIV 1 & 2 Ab/Ag 4th Gen Combo NEGATIVE (NEGATIVE); Hep C Virus Ab w/Reflex Quant NEGATIVE s/c (NEGATIVE); Hepatitis B Surface Antigen NEGATIVE s/c (NEGATIVE); Rubella Antibody IgG 20.9 IU/mL (>15)
== END ==
PROVIDERS: PCP Registered Nurse Diabetes Educator; Referring Provider Registered Nurse Diabetes Educator; Visit Provider Student in an Organized Health Care Education/Training Program
DX: O99.210 Obesity complicating pregnancy, unspecified trimester (principal)
CPT/HCPCS: 36415; 80055; 83036; 86787; 86803; 86850; 86900; 86901; 87086; 87147; 87389; 87491; 87591

== ENCOUNTER → 2024-12-20 10:27 | Outpatient (CLI) | payer OTHER, SELFPAY | PROVIDERS: PCP Registered Nurse Diabetes Educator; Referring Provider Student in an Organized Health Care Education/Training Program; Visit Provider Student in an Organized Health Care Education/Training Program | DX: Z36.0 Encounter for antenatal screening for chromosomal anomalies (principal) | CPT/HCPCS: 36415; 82105; 82677; 84702; 86336 ==

== ENCOUNTER → 2025-01-05 06:43 | Outpatient (CLI) | payer OTHER, SELFPAY ==
--- NOTE | 2025-01-05 06:43 | DI.US.S_ITS ---
PROCEDURE: US OB >= 14 WEEKS FETUS INDICATIONS: 20 week anatomy scan OUTSIDE/PRIOR DATING DATA: Last menstrual period (LMP): August 17, 2024. LMP-based estimated date of delivery (VEL): May 24, 2025. The calculations are made using the clinical VEL of May 24, 2025. TECHNIQUE: Real-time scanning was performed of the fetus, with image documentation and biometric measurements. Endovaginal scanning: Not performed COMPARISON: [facility], , OB >= 14 WEEKS FETUS, 01/29/2022, 15:41. FINDINGS: General: A single living intrauterine gestation is present. Presentation: Breech. Placenta: Placental position is anterior , without previa. Amniotic fluid index: 16.9 cm, normal range is 5-24 cm. Single deepest vertical pocket is 5.4 cm. heart rate: 150 beats per minute. Maternal cervical canal: 5.2 cm long. Normal lower limit is 2.5 cm. biometrics: Biparietal diameter: 4.7 cm, 20 weeks and 1 day Head circumference: 17.7 cm, 20 weeks and 1 day Abdominal circumference: 15.8 cm, 20 weeks and 6 days Femur length: 3.3 cm, 20 weeks and 2 days Clinically estimated gestational age: 20 weeks and 1 day Composite gestational age from present scan: 20 weeks and 3 days Estimated weight and percentile: 363 g which correlates with the 70th percentile for gestational age. Anatomic survey: Neuro: Ventricles are non-dilated at less than 10 mm. Cisterna magna is normal at 3-11 mm. Cerebellum is normal in size and morphology. Nuchal skin fold: Normal at less than 6 mm between 14-21 weeks gestational age. Face: Nose and lips, facial profile are normal. Spine: No evidence for spina bifida. Heart: 4-chambered heart is present, with normal ventricular outflow tracts. Diaphragm: Diaphragm is intact. Stomach: Left-sided stomach is present. Kidneys: No hydronephrosis. Normal is less than 5 mm in 2nd trimester, less than 7 mm in 3rd trimester. Cord: 3-vessel cord has orthotopic insertion. Bladder: Normal in size. Extremities: All 4 extremities identified. IMPRESSION: Single living intrauterine gestation with estimated sonographic gestational age of approximately 20 weeks and 3 days. Estimated weight of approximately 363 g which correlates with the 70th percentile for gestational age. Otherwise, normal routine second-trimester anatomy screening survey. We strive to produce accurate, complete, and clear reports of imaging services. To assist us in improving patient care, this report was composed using standard report templates and voice recognition software. Therefore, it may contain abnormal punctuation, insertions and/or omissions. Occasional wrong-word or sound-alike substitutions may occur. Though we review the report and make efforts to correct it, we do recommend that the report be read carefully in proper context to recognize any text inaccuracies. Dictated by: Juan Carlos Serna M.D. on 01/05/2025 at 11:25 Approved by: Juan Carlos Serna M.D. on 01/05/2025 at 11:28
== END ==
PROVIDERS: PCP Registered Nurse Diabetes Educator; Referring Provider Student in an Organized Health Care Education/Training Program; Visit Provider Student in an Organized Health Care Education/Training Program
DX: Z34.82 Encounter for supervision of other normal pregnancy, second trimester (principal); Z3A.20 20 weeks gestation of pregnancy
CPT/HCPCS: 76811

== ENCOUNTER → 2025-02-14 09:09 | Outpatient (CLI) | payer OTHER, SELFPAY ==
[2025-02-14 10:59] LABS: Hematocrit 37.7 % (36-46); Hemoglobin 13.3 g/dL (12.0-16.0)
[2025-02-14 11:55] LABS: GTT (PREG) 1 Hour PP 50gm Dose 99 mg/dL (76-139)
== END ==
PROVIDERS: PCP Registered Nurse Diabetes Educator; Referring Provider Obstetrics & Gynecology; Visit Provider Obstetrics & Gynecology
DX: Z13.1 Encounter for screening for diabetes mellitus (principal); Z13.0 Encounter for screening for diseases of the blood and blood-forming organs and certain disorders involving the immune mechanism
CPT/HCPCS: 36415; 82950; 85014; 85018

== ENCOUNTER 2025-04-26 13:47 | Observation (INO) | payer OTHER, SELFPAY ==
--- NOTE | 2025-04-26 14:25 | P.TNLD_ITS ---
Visit Information Visit Information Date of evaluation: 04/26/25 Primary OB Provider: Bronson Ledesma On-call OB Provider: Myrtle Rodriguez Reason for Evaluation: Yes non-stress test Comments/Additional reasons for admission: NST in lieu of routine office OB secondary to limitation in provider schedule [facility] Medical History (Updated 02/02/25 @ 15:43 by Bronson Ledesma MD) Cervical high risk HPV (human papillomavirus) test positive depression Difficulty of mother performing Deficient knowledge of Abscess Surgical History (Updated 09/30/24 @ 14:38 by Avril Pathak, NELLA) [place] teeth extracted History of tonsillectomy Family History Grandmother Lung cancer Diabetes mellitus Social History marital status: number of children: 2 household members: spouse and children lives independently: Yes caregiver/support person: Yes housing: condominium ([facility]) pets and animals: No education level: high school occupational status: employed current occupational exposures/hazards: No special marlon needs: No travel history: over 6 months ago seatbelt use: always water heater temp set < 120 deg: No working smoke detector in home: Yes fire extinguisher in home: No carbon monox detector in home: Yes firearms in home: Yes firearms unloaded and locked: Yes do you feel safe at home: Yes Tobacco: How many years used: 1 second hand exposure: Yes ( vapes, but not around pt) alcohol intake: former substance use type: marijuana (never while /) during the past year weight has: decreased > 10 lbs (~15 lb) well-balanced diet: daily or most days daily servings fruits/ve-4 caffeine: Yes (green tea) Type(s) of exercise: walking and resistance training frequency: daily Review of Systems Review of Systems ROS: Yes All systems reviewed with the patient and are negative except as otherwise documented Evaluation Evaluation Baseline heart rate: 140 Variability: Moderate (6-25) monitor accelerations: Present Monitor Decelerations: Absent Category of Tracing: Reactive Status: Category l Diagnosis, Plan/Disposition Plan/Disposition Plan: GBS collected prior to departure routine FM/labor precautions f/u in office as scheduled LILLIANA 05/03 OB Disposition: home
[2025-04-27 12:25] LABS: Strep Grp B PCR POS for Grp B Strep
== END 2025-04-26 14:51 | disposition home or self-care (01) ==
PROVIDERS: Admitting Provider Obstetrics & Gynecology; PCP Registered Nurse Diabetes Educator; Referring Provider Obstetrics & Gynecology; Visit Provider Obstetrics & Gynecology
DX: O36.8130 Decreased fetal movements, third trimester, not applicable or unspecified (principal); Z3A.36 36 weeks gestation of pregnancy
CPT/HCPCS: 59025; 87653; G0378; G0379

== ENCOUNTER 2025-05-16 11:58 | Outpatient (CLI) | payer OTHER, SELFPAY ==
--- NOTE | 2025-05-16 14:18 | PM.OBTRLD ---
Visit Information Visit Information Date of evaluation: 05/16/25 On-call OB Provider: Diya Mckoy Reason for Evaluation: Yes non-stress test [facility] Medical History (Updated 05/16/25 @ 14:19 by Diya Mckoy DO) Cervical high risk HPV (human papillomavirus) test positive depression Difficulty of mother performing Deficient knowledge of Abscess Surgical History (Updated 09/30/24 @ 14:38 by Avril Pathak, NELLA) [place] teeth extracted History of tonsillectomy Family History Grandmother Lung cancer Diabetes mellitus Social History marital status: number of children: 2 household members: spouse and children lives independently: Yes caregiver/support person: Yes housing: condominium ([place]) pets and animals: No education level: high school occupational status: employed current occupational exposures/hazards: No special marlon needs: No travel history: over 6 months ago seatbelt use: always water heater temp set < 120 deg: No working smoke detector in home: Yes fire extinguisher in home: No carbon monox detector in home: Yes firearms in home: Yes firearms unloaded and locked: Yes do you feel safe at home: Yes Tobacco: How many years used: 1 second hand exposure: Yes ( vapes, but not around pt) alcohol intake: former substance use type: marijuana (never while /) during the past year weight has: decreased > 10 lbs (~15 lb) well-balanced diet: daily or most days daily servings fruits/ve-4 caffeine: Yes (green tea) Type(s) of exercise: walking and resistance training frequency: daily Evaluation Evaluation Baseline heart rate: 150 Variability: Moderate (6-25) monitor accelerations: Present Monitor Decelerations: Absent Category of Tracing: Reactive Diagnosis, Plan/Disposition Final Diagnosis (1) Decreased movement affecting management of in third trimester: Status: Acute Plan/Disposition OB Disposition: home
== END 2025-05-16 12:55 | disposition home or self-care (01) ==
LOC: LABOR 12:46 → OB 14:21
PROVIDERS: PCP Registered Nurse Diabetes Educator; Referring Provider Student in an Organized Health Care Education/Training Program; Visit Provider Student in an Organized Health Care Education/Training Program
DX: O36.8130 Decreased fetal movements, third trimester, not applicable or unspecified (principal); Z3A.38 38 weeks gestation of pregnancy
CPT/HCPCS: 59025; G0378; G0379

== ENCOUNTER 2025-05-19 07:04 | Inpatient (IN) | payer OTHER, SELFPAY ==
[2025-05-19 07:52] LABS: Add Manual Diff / Slide Review NO; Hematocrit 38.1 % (36-46); Hemoglobin 13.5 g/dL (12.0-16.0); Lymphocytes Absolute Auto 900 /uL (1100-4500); Mean Corpuscular HGB Conc 35.4 % (30-36); Mean Corpuscular Hemoglobin 29.9 PG (26-34); Mean Corpuscular Volume 84.6 fL (80-100); Platelet Count 186 X10^3/uL (150-400)
[2025-05-19] MEDS: LACTATED RINGERS 1,000 ML 100 ML IV (09:07)
--- NOTE | 2025-05-19 09:17 | P.HPOB_ITS ---
OB HPI Date/Time Date of admission: 05/19/25 Date Patient Seen: 05/19/25 Time Patient Seen: 09:17 History of Present Condition Chief complaint: elective IOL VEL Calculator 2 Estimated Delivery Date Method Current WG Current Estimate 05/24/25 LMP (Certain) 39w 2d Other Estimates 05/24/25 Ultrasound #1 39w 2d : 3 Para: 2 care: good care Dating criteria OB: LMP confirmed by 1st trimester US Ultrasounds: normal mid trimester US Obstetrical complications: none Medical complications OB: none Indications Indication for induction OB: other (elective) Preadmission Labs Last OB Lab Results: 2 Blood Type B Positive Today, 07:40 Antibody Screen Negative Today, 07:40 Hct, (36-46) 38.1 % Today, 07:40 Hgb, (12.0-16.0) 13.5 g/dL Today, 07:40 Hep Bs Antigen, (NEGATIVE) Negative s/c 10/18/24, 16: 08 Hepatitis C Antibody, (NEGATIVE) Negative s/c 5, 16:08 Rubella Antibody, (>15) 20.9 IU/mL 10/18/24, 16:08 VZV IgG Antibody, (Non Reactive) Reactive 5, 16:08 Glucose 1 Hr 50 gm, (76-139) 99 mg/dL 02/14/25, 1 0:45 Hemoglobin A1c, (4.0-6.0) 4.7 % 10/18/24, 16:0 8 Group B Strep (PCR) Pos for grp b strep H 04/26/25, 14:30 -: Chlamydia screen: negative and Gonorrhea screen: negative -: PAP smear: Abnormal (NILM/HPV+, repeat 2025) Genetic Screens: Cell-free DNA: Normal Prior (ies) Past Pregnancies Del. Date GA/Weeks Labor Lgth Wt Sex Route Outcome Anesthesia Place Delv Breastfeed Preg Comp Name 12/12/17 41 9 7 lb 8 oz Female vaginal live - full term [place], [place] 5 months Neelima 05/31/22 37.6 7 8 lb 7.9 oz Male vaginal live - full term epidural IH 11 months [place] Delivery Date: 05/31/22 Last Updated by: ROMAN BookerC not medicated for PIH Hx # Term Pregnancies: 3 Number of Living Children: 2 Evaluation Evaluation Baseline heart rate: 145 Variability: Moderate (6-25) monitor accelerations: Present Monitor Decelerations: Absent Uterine Contraction Intensity: Mild Category of Tracing: Reactive Status: Category l PFSH Medical History (Updated 05/16/25 @ 14:19 by Diya Mckoy DO) Cervical high risk HPV (human papillomavirus) test positive depression Difficulty of mother performing Deficient knowledge of Abscess Surgical History (Updated 09/30/24 @ 14:38 by Avril Pathak RN) [place] teeth extracted History of tonsillectomy Family History Grandmother Lung cancer Diabetes mellitus Social History marital status: number of children: 2 household members: spouse and children lives independently: Yes caregiver/support person: Yes housing: condominium ([facility]) pets and animals: No education level: high school occupational status: employed current occupational exposures/hazards: No special marlon needs: No travel history: over 6 months ago seatbelt use: always water heater temp set < 120 deg: No working smoke detector in home: Yes fire extinguisher in home: No carbon monox detector in home: Yes firearms in home: Yes firearms unloaded and locked: Yes do you feel safe at home: Yes Tobacco: How many years used: 1 second hand exposure: Yes ( vapes, but not around pt) alcohol intake: former substance use type: marijuana (never while /) during the past year weight has: decreased > 10 lbs (~15 lb) well-balanced diet: daily or most days daily servings fruits/ve-4 caffeine: Yes (green tea) Type(s) of exercise: walking and resistance training frequency: daily Meds Home Medications and Allergies Home Medications ?Medication ?Instructions ?Recorded ?Confirmed ?Type aspirin 81 mg tablet 81 mg PO DAILY #90 tabs 12/0105/19/25 Rx vitamins no.175-iron 1 tab PO DAILY #90 tabs 12/20/24 05/19/25 Rx fumarate 29 mg-folic acid 1 mg tablet Allergies Allergy/AdvReac Type Severity Reaction Status Date / Time No Known Drug Allergies Allergy Verified 05/19/25 09:55 Review of Systems Review of Systems ROS: Yes All systems reviewed with the patient and are negative except as otherwise documented OB Exam Vital signs Blood Pressure: 109/63 Pulse Rate: 94 Respiratory Rate: 18 Temperature: 96.6 F HENMT Head: normal to inspection Resp Effort & Inspection: normal respiratory effort and able to speak in complete sentences Extremities Lower extremity: Yes normal to inspection GI Palpation: Yes soft Other: gravid, william cephalic 7.5-8# Objective Labs 05/19/25 07:40 Labs: Laboratory Results - last 24 hr 05/19/25 07:40 WBC 7.7 RBC 4.50 Hgb 13.5 Hct 38.1 MCV 84.6 MCH 29.9 MCHC 35.4 RDW 13.7 Plt Count 186 Neut % (Auto) 76.6 H Lymph % (Auto) 11.3 L [place] % (Auto) 11.4 Eos % (Auto) 0.4 L Baso % (Auto) 0.3 Neut # (Auto) 5900 Lymph # (Auto) 900 L [place] # (Auto) 900 Eos # (Auto) 0 Baso # (Auto) 0 Blood Type B Positive Antibody Screen Negative Assessment and Plan Assessment and Plan Assessment and Plan narrative: 29yo at 39w3d d=8wk US presents for scheduled elective IOL at term Elective IOL SVE /, start cervical ripening per miso protcol patient counseled on anticipated additional cervical ripening vs initiation of IV pitocin, further augmentation with AROM with adequate descent cont CEFM/toco patient counseled on risks, benefits and alternatives to IOL; pt verbalized understanding and desires to proceed patient is consented for vaginal, vaginal operative and delivery as well as transfusion of blood products as medically indicated anticipate Time-Based Coding :: [TOTAL MINUTES] spent with patient and on the chart (including review of chart, obtaining history, exam, reviewing outside data, placing orders, documenting exam and treatment plan, and counseling patient) on [DATE].
[2025-05-19 09:21] VITALS: BP 113/65
[2025-05-19 14:33] VITALS: BP 109/63; PULSE 94; RESP 18; TEMP 35.9
[2025-05-19] MEDS: OXYTOCIN PREMIX 30 UNIT/500 ML PLAST..BAG IV (17:19)
[2025-05-19] MEDS: AMPICILLIN 2,000 MG in SODIUM CHLORIDE 0.9% 100 ML 200 MG IV (19:10)
--- NOTE | 2025-05-19 19:39 | PM.AN.REGBLK ---
Regional Block Pre-procedure PMH/ROS narrative: multip in active labor requesting epidural PSH/Anesthesia history narrative: epidurals in past. one of which was one sided. otherwise uneventful. ASA Class: III Labs: Hct 38.1 % (36-46) 05/19/25 07:40 Plt Count 186 X10^3/uL (150-400) 05/19/25 07:40 Medications: Current Medications Generic Name Dose Route Start Last Admin Trade Name Freq PRN Reason Stop Dose Admin Carboprost Tromethamine 250 mcg 05/19/25 07:34 Carboprost 250 Mcg/Ml Ampul IM Q90M PRN Bleeding Fentanyl 50 mcg 05/19/25 07:34 Fentanyl 100 Mcg/2 Ml Inj IV Q1H PRN Pain, Moderate (4-6) Oxytocin/Lactated Ringer's 30 unit in 500 mls @ 200 mls/hr 05/19/25 07:34 Oxytocin Premix IV CONT PRN Bleeding Protocol Tranexamic Acid 1,000 mg/ 100 mls @ 600 mls/hr 05/19/25 07:34 Sodium Chloride IV NOW PRN Bleeding Ampicillin Sodium 1,000 mg/ 100 mls @ 200 mls/hr 05/19/25 12:00 Sodium Chloride IV Q4H EMILIE Oxytocin/Lactated Ringer's 30 unit in 500 mls @ 2 mls/hr 05/19/25 17:00 05/19/25 17:19 Oxytocin Premix IV 2 milliunit/min TITRATE EMILIE 2 mls/hr Protocol Administration 2 MILLIUNIT/MIN Lidocaine HCl 20 ml 05/19/25 07:34 Lidocaine 1% 20 Ml INJ INTRA-OP PRN Post Delivery Methylergonovine Maleate 0.2 mg 05/19/25 07:34 Methylergonovine 0.2 Mg Tablet PO Q6HR PRN Heavy Bleeding Methylergonovine Maleate 0.2 mg 05/19/25 07:34 Methylergonovine 0.2 Mg/Ml Vial IM NOW PRN Bleeding Mineral Oil 30 ml 05/19/25 07:34 Mineral Oil 30 Ml Udc TOP PRN PRN Version Misoprostol 800 mcg 05/19/25 07:34 Misoprostol 200 Mcg Tablet [place] NOW PRN Bleeding Misoprostol 400 mcg 05/19/25 07:34 Misoprostol 200 Mcg Tablet SL NOW PRN Bleeding Misoprostol 50 mcg 05/19/25 07:34 12/18/25 13:01 Misoprostol 25 Mcg Tablet PO 50 mcg Q4H PRN Administration cervical ripening Naloxone HCl 0.2 mg 05/19/25 07:34 Naloxone 0.4 Mg/Ml Vial IV Q2MIN PRN Opiate Reversal Oxytocin 10 unit 05/19/25 07:34 Oxytocin 10 Unit/Ml Vial IM NOW PRN Bleeding Allergies: Allergies Allergy/AdvReac Type Severity Reaction Status Date / Time No Known Drug Allergies Allergy Verified 05/19/25 09:55 --: h and p obtained. rba discussed. drape and prep using sterile technique. v/s/s. l3 l4 interspace identified. lido 1% 3 cc skin wheel. 18 g tuohy through skin wheel. PREMA at 9 cm. 27 g pencil point needle through with CSF, heme - no paresthesias. removed sab needle. epidural catheter to 15 cm. secured with tegaderm x 2 sterile. taped up patients back. dosed as charted below. Procedure Insertion date: 05/19/25 Insertion time: 19:25 Prep/Local: betadine x3 (chloraprep) and 1% lidocaine (3cc) Interspace: l3 l4 Patient position: sitting Needle: 17 gauge Tuohy (18g) Loss of resistance with: saline PREMA at (cm): 9 Catheter placed at SKIN (cm): 15 Sensory level: t8 Insertion: No CSF, No Blood, No Paresthesia with insertion, No Paresthesia with injection and No Test dose reaction Initial Medications TEST DOSE time: 19:26 TEST DOSE: 1.5% lidocaine with epinephrine 1:200k (mL): 3 BOLUS DOSE time: 19:30 BOLUS DOSE (mL): 5 BOLUS DOSE med: other (infusate) Infusion INFUSION: 0.125% bupivacaine and with fentanyl 2 mcg/mL Initial rate (mL/hr): 10 Post-procedure Anesthesia date START: 05/19/25 Anesthesia time START: 19:15 Anesthesia date END: 05/19/25 Anesthesia time END: 20:23 Post-procedure Anesthesia Assessment: Yes CV function: HR/BP stable, Yes Resp function: RR/sat/airway adequate, Yes Post-op hydration adequate, Yes Pain control adequate, Yes Nausea & vomiting absent, Yes Temperature > 36 C, Yes Mental status appropriate and Yes Anesthesia complications
--- NOTE | 2025-05-19 20:41 | PM.OBPRVD ---
Labor & Delivery Delivery date: 05/19/25 Delivery Time: 20:23 Intrapartal Events: None Cervical ripening method: per misoprostal protocol Induction method: per pitocin protocol Delivery augmentation: rupture of membranes Delivery monitor: external FHT Route of delivery: Episiotomy description: None L&D Laceration Description: None Estimated blood loss (mL): 300 Anesthesia Type: Epidural Baby 1: Infant gender: Male Presentation: vertex Position: Right Occiput Transverse Placenta delivery description: Spontaneous Cord Vessel Description: 3 Vessels, Nuchal Cord and Tight score (1 min): 7 score (5 min): 9 Narrative: Pt in dorsal lithotomy position, C/C/0 with bulging bag. AROM performed with return of copious clear fluid. Rapid descent of station to +3 after which minimal further descent was noted concerning for possible impending shoulder dystocia. This was verbalized to the assisting RN and additional staff was called to room to assist with delivery as needed. Delivery of head to ROT position with noted tight nuchal cord that was unable to be reduced. Spontaneous delivery of anterior shoulder with gentle downward traction; head stablized at the perineum and body delivered without complication somersaulting through the nuchal cord in clockwise fashion followed by reduction of body loop x1 and LLE loop x1. Placenta delivered spontaneously, inspected and noted to be intact; fundus immediately palpated and firm. Perineal exam performed with noted adherent retained membranes in absence of active bleeding; these were grasped with ring forceps and gentle teased with spontaneous release. Fundus again palpated and noted to be firm. Perineum intact without laceration. All counts correct x2 Plan for aftercare: Routine care
[2025-05-19] MEDS: DERMOPLAST SPRAY 20% 60 ML 1 SPRAY TOP (22:43)
[2025-05-19] MEDS: ACETAMINOPHEN 325 MG TABLET 650 MG PO (22:43)
[2025-05-19] MEDS: LANOLIN OINT 7 GM 1 APPLIC TOP (22:44)
[2025-05-19] MEDS: IBUPROFEN 600 MG TABLET PO (22:49)
[2025-05-20] MEDS: IBUPROFEN 600 MG TABLET PO ×3 (04:45→16:33)
[2025-05-20] MEDS: ACETAMINOPHEN 325 MG TABLET 650 MG PO ×3 (04:45→16:33)
[2025-05-20 06:55] LABS: Hematocrit 37.6 % (36-46); Hemoglobin 12.9 g/dL (12.0-16.0)
--- NOTE | 2025-05-20 10:20 | P.DS_ITS ---
Discharge Providers Provider Date of admission: 05/19/25 07:04 Discharge Date: 05/20/25 Primary care physician: JOSÉ LUIS Li Consults: 05/19/25 07:35 Consult to Anesthesiology Urgent Comment: Consulting Provider: Anesthesiologist Reason for consultation: Epidural 05/19/25 20:38 Consult to Drum Plater Routine Comment: Discharge provider: Diya Mckoy DO Summary Hospital Course Date Patient Seen: 05/20/25 Time Patient Seen: 09:45 Diagnoses: Term gestation at 39+2wks Group B strep carrier Obesity in History of depression/anxiety Hospital Course: 29yo [id number] admitted at 39+2wks for induction of labor. She progressed to an uncomplicated spontaneous vaginal delivery, productive of a viable male infant. Her course was uncomplicated. On day #1, she was ambulating, tolerating regular diet, voiding spontaneously with minimal lochia. Her pain was well controlled with oral medications, thus she was discharged to home on day #1. Peripartum Data Infant Delivery Method: Natural Vaginal Laceration Description: None Procedures: External monitoring Induction of labor Epidural anesthesia Spontaneous vaginal delivery complications: none 1: Gender: Male Disposition of : home Discharge Diagnosis (1) Normal vaginal delivery: Status: Acute (2) Single live : Status: Acute (3) Group B streptococcal carriage complicating : Status: Acute (4) Obesity affecting : Status: Acute (5) Depression affecting : Status: Acute (6) 39 weeks gestation of : Status: Acute Status at Discharge Cognitive/behavioral status at discharge: oriented Functional status at discharge: independent ambulation Overall status at discharge: patient is progressing back to baseline Time Spent with Patient Time attestation: Total time spent providing and/or coordinating discharge services: Time spent: Less than 30 minutes Objective Labs 05/20/25 06:42 Labs: Laboratory Results - last 24 hr 05/20/25 06:42 Hgb 12.9 Hct 37.6 Exam Vital Signs (past 8 hours): vitals reviewed in [facility], within normal parameters in the period Const General: cooperative, healthy appearing, comfortable and No acute distress Resp Effort & Inspection: normal respiratory effort GI Inspection: normal to inspection Skin General: no rashes or lesions noted Neuro General: patient alert and patient awake Extrem General: normal to inspection, no pedal edema and no calf tenderness Psych Mood: congruent mood Affect: normal affect Discharge Plan Discharge Plan Patient Disposition: Home Provider Discharge Comment: Take ibuprofen 600mg every 6hrs or acetaminophen 650mg every 6hrs as needed for cramping or pain. Avoid placing anything in the vagina for 6 weeks. Discharge orders & Medications Prescriptions: Continued PNV no.175-iron fum-folic acid 29-1 mg tablet 1 tab PO DAILY Qty: 90 3RF Discontinued aspirin 81 mg tablet 81 mg PO DAILY Qty: 90 2RF Follow up/Referrals: Diya Mckoy DO [Physician, CLIENT SERVICES DIRECTOR] - 06/27/25 11:00 am Referral Note: June 06 Telehealth appointment at 3pm Diet/Activity/Treatments Diet: Diet as Tolerated Activity: Ambulate as tolerated. Skin/Wound/Dressing Care Report to your healthcare provider any signs of infection, such as:: chills, fever, increased pain and unusual drainage Visit Report/Discharge Packet Instructions: DI for Labor and Delivery, Vaginal Stand Alone Forms: [employer], Patient Portal/API, Stroke Signs & Symptoms, Influenza Vaccine Info, Notice of Privacy Practices, Inpatient vs Outpatient, Pneumococcal Vaccine Info, Pt. Rights & Responsibilities Discharge Data Primary Care Provider: Kolton Richardson
[2025-05-20 18:25] VITALS: BP 102/68; PULSE 84; RESP 18; TEMP 36.1
== END 2025-05-20 17:55 | disposition home or self-care (01) | DRG 560 ==
PROVIDERS: Obstetrics & Gynecology; Admitting Provider Student in an Organized Health Care Education/Training Program; PCP Registered Nurse Diabetes Educator; Referring Provider Student in an Organized Health Care Education/Training Program; Visit Provider Student in an Organized Health Care Education/Training Program
DX: O99.824 Streptococcus B carrier state complicating childbirth (principal); Z3A.39 39 weeks gestation of pregnancy; Z37.0 Single live birth; O73.1 Retained portions of placenta and membranes, without hemorrhage
CPT/HCPCS: 36415; 59050; 59200; 85014; 85018; 85025; 86850; 86900; 86901; G0379; J0290; J2590; J7050; J7120